=== PATIENT | female | born 2005 | race Caucasian/White ===

== ENCOUNTER → 2025-09-21 | Day surgery (SDC) | payer BC ==
[2025-09-19 15:15] VITALS: BMI 22.1
[~2025-09-21] MED LIST: AFRIN NASAL MIST 15 ML BOT ONE; Ferric Subsulfate 8 ML TOPICAL SOLN ONE; Hydrocodone-Acetamin 15 ML UDCUP ONE; KETAMINE 100 MG/ML (5ML VIAL) ONE; Lidocaine 1% PF 5 ML VIAL ONE; Lidocaine 1% w/Epinephrine 1:200K 30 ML VIAL ONE; Ondansetron PF 4 MG/2 ML Vial ONE; Oxymetazoline HCl 0.05% (15 ML) ONE; PROPOFOL 40 ML ONE; Rocuronium Bromide 10 MG/ML (10ML VIAL) ONE; SUGAMMADEX SODIUM 200 MG/2 ML VIAL ONE
[2025-09-21 06:41] LABS: Hematocrit 39.4 % (34.9-44.5)
[2025-09-21 06:50] LABS: BHCG - Serum Negative (NEGATIVE); Pregs Control Background? CLEAR/WHITE (CLR/WHITE); Pregs Control Bar Appear? YES (CONTROL BAR)
== END ==
LOC: CSHSDC 06:20
PROVIDERS: ATTEND Specialist
PROC: 09BL0ZZ Excision of Nasal Turbinate, Open Approach (ICD-10-PCS; principal; 2025-09-21)
PROC: 0CBPXZZ Excision of Tonsils, External Approach (ICD-10-PCS; principal; 2025-09-21)
PROC: 0CTN0ZZ Resection of Uvula, Open Approach (ICD-10-PCS; principal; 2025-09-21)
DX: J35.01 Chronic tonsillitis (principal); J35.3 Hypertrophy of tonsils with hypertrophy of adenoids; J34.3 Hypertrophy of nasal turbinates; G47.33 Obstructive sleep apnea (adult) (pediatric); Z88.1 Allergy status to other antibiotic agents
CPT/HCPCS: 36415; 84703; 85014; 88304; J2250; J2405; J2704